=== PATIENT | male | born 2000 | race American Indian/Alaskan Native ===

== ENCOUNTER 2020-08-29 03:20 | Emergency (ER) | payer OTHER ==
[2020-08-29 03:40] VITALS: BP 143/98
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
== END 2020-08-29 04:00 | disposition home or self-care (01) ==
LOC: ED 03:20
DX: Z04.1 Encounter for examination and observation following transport accident (principal); F10.929 Alcohol use, unspecified with intoxication, unspecified; V57.5XXA Driver of pick-up truck or van injured in collision with fixed or stationary object in traffic accident, initial encounter; Y92.410 Unspecified street and highway as the place of occurrence of the external cause
CPT/HCPCS: 99281